=== PATIENT | female | born 1975 | race Caucasian/White ===

== ENCOUNTER → 2023-10-23 13:41 | Outpatient (CLI) | payer OTHER, SELFPAY ==
--- NOTE | 2023-10-23 | DI.MRI.S_ITS ---
PROCEDURE: MR KNEE RT WO CON INDICATIONS: Pain in right knee TECHNIQUE: Noncontrast sagittal PD fast spin echo and T2 fast spin echo with fat saturation, sagittal 3-D FLASH with fat saturation; coronal T1 spin echo and PD fast spin echo with fat saturation, and axial PD fast spin echo with fat saturation through the knee. COMPARISON: Outside Film, CR, XR KNEE 4+ VIEWS BILATERAL, 01/25/2022, 13:44. [facility], CR, XR KNEE ARTHRITIC SERIES BI, 09/06/2023, 14:03. FINDINGS: Image quality: Excellent. Menisci: Peripheral displacement of medial meniscus bowing medial collateral ligament is seen. Complex tear involving body and posterior horn of medial meniscus extending to both superior and inferior articulating surfaces is noted. Subtle oblique tear involving anterior horn of lateral meniscus is also seen extending to superior articulating surface. The meniscal root ligaments appear intact. Cruciate ligaments: The anterior cruciate ligament is thickened with intrasubstance T2 hyperintense signal near its femoral insertion. The posterior cruciate ligament is intact. Medial structures: The medial collateral ligament appears thickened with surrounding soft tissue edema and intrasubstance T2 hyperintense signal. Visualized portions of the pes anserinus tendons appear normal. No abnormal bursal fluid. Lateral structures: The lateral collateral ligament is thickened at its femoral insertion. The long and short heads of the biceps femoris tendon appear thickened. The popliteus tendon appears normal. Iliotibial band appears normal. Anterior structures: Distal quadriceps tendinosis at its superior patellar insertion is seen. Proximal patellar tendinosis is also seen. Patellar alignment is normal. No femoral trochlear dysplasia or ventral trochlear prominence. No edema in the infrapatellar fat pad. Bones and cartilage: Moderate to severe tricompartmental osteoarthritis and chondromalacia most notably involving medial femoral tibial compartment. No fracture or dislocation. Joint space: There is moderate knee joint fluid. No Hickman's cyst. Normal appearing synovial plicae are incidentally noted. IMPRESSION: 1. Complex tear involving body and posterior horn of medial meniscus extending to both superior and inferior articulating surfaces. Oblique tear involving anterior horn of lateral meniscus extending to superior articulating surface. 2. Sprain/low-grade intrasubstance partial-thickness tear involving anterior cruciate ligament. No ACL rupture. The PCL is intact. 3. Low to moderate grade MCL sprain and low-grade proximal LCL sprain. Distal biceps femorals tendinosis. 4. Distal quadriceps tendinosis. Proximal patellar tendinosis. No full-thickness tendon rupture. 5. Moderate to severe tricompartmental osteoarthritis and chondromalacia most notably in medial femoral tibial compartment. No fracture or dislocation. Moderate joint effusion, no gross loose bodies. Dictated by: Jose Hernandez M.D. on 10/23/2023 at 14:52 Approved by: Jose Hernandez M.D. on 10/23/2023 at 15:13
== END ==
PROVIDERS: PCP Naturopath; Referring Provider Orthopaedic Surgery; Visit Provider Orthopaedic Surgery
DX: S83.231A Complex tear of medial meniscus, current injury, right knee, initial encounter (principal); S83.281A Other tear of lateral meniscus, current injury, right knee, initial encounter; S83.511A Sprain of anterior cruciate ligament of right knee, initial encounter; S83.411A Sprain of medial collateral ligament of right knee, initial encounter; M17.11 Unilateral primary osteoarthritis, right knee; M94.261 Chondromalacia, right knee; M25.461 Effusion, right knee; M25.561 Pain in right knee
CPT/HCPCS: 73721